=== PATIENT | male | born 1955 | race African-American/Black ===

== ENCOUNTER 2021-08-30 14:21 | Inpatient (IN) | payer OTHER ==
[2021-08-30] MEDS ORDERED: P-EPHED 60MG/TRIPROLIDI 2.5MG TABLET PO PRN (17:20)
[2021-08-30] MEDS ORDERED: LOPERAMIDE HCL 2 MG CAPSULE PO PRN (17:20)
[2021-08-30] MEDS ORDERED: guaiFENesin 200 MG/10 ML 10 ML UNIT-DOSE CUPS PO PRN (17:20)
[2021-08-30] MEDS ORDERED: ACETAMINOPHEN 325 MG TABLET (FP) PO PRN (17:20)
[2021-08-30 21:27] VITALS: BMI 38.9
[2021-08-30] MEDS ORDERED: MELATONIN 5 MG TABLETS PO SCH (22:00)
[2021-08-30] MEDS: THIAMINE HCL 100 MG TABLET (FP) PO SCH (23:06)
[2021-08-30] MEDS: NICOTINE 7 MG/24 HOURS TOPICAL PATCH TD SCH (23:06)
[2021-08-30] MEDS: hydrOXYzine PAMOATE 25 MG CAPSULE (FP) PO SCH ×2 (23:06→23:13)
[2021-08-31] MEDS: hydrOXYzine PAMOATE 25 MG CAPSULE (FP) PO SCH ×2 (06:35→12:14)
[2021-08-31] MEDS ORDERED: PATIENT'S OWN MEDICATION (NON-FORMULARY) (Amlodipine Besylate/Valsartan [Amlodipine-Valsar PO SCH (10:15)
[2021-08-31] MEDS ORDERED: hydrOXYzine PAMOATE 25 MG CAPSULE (FP) PO PRN (10:24)
[2021-08-31 11:54] LABS: HEMATOCRIT 44.5 % (35.4-49); HEMOGLOBIN 14.8 GM/dL (11.7-16.9); MCH 29.8 pg (25.7-33.7); MCHC 33.3 g/dl (32.0-35.9); MEAN CELL VOLUME 89.4 fl (80-96); PLATELET COUNT 274 10^3/uL (134-434); RBC 4.98 M/mm3 (4.00-5.60); RDW 15.2 % (11.9-15.9); WHITE BLOOD COUNT 9.7 K/mm3 (4.0-10.0)
[2021-08-31] MEDS: NICOTINE 7 MG/24 HOURS TOPICAL PATCH TD SCH (11:59)
[2021-08-31] MEDS: amLODIPine BESYLATE 5 MG TABLET (FP) PO SCH (12:00)
[2021-08-31] MEDS: FAMOTIDINE 20 MG TABLET PO SCH (12:00)
[2021-08-31] MEDS: LEVOTHYROXINE NA 100 MCG TABLET (FP) PO SCH (12:00)
[2021-08-31] MEDS: TAMSULOSIN HCL 0.4 MG CAP PO SCH (12:00)
[2021-08-31] MEDS: VALSARTAN 160 MG TABLET PO SCH (12:01)
[2021-08-31] MEDS ORDERED: FLU VACC QS2021-22(6MOS UP)/PF 60 MCG/0.5 ML SYRINGE IM ONE (12:19)
[2021-08-31 12:21] LABS: ALBUMIN 3.8 g/dl (3.4-5.0); BLOOD UREA NITROGEN 21.7 mg/dL (7-18); CALCIUM 9.6 mg/dL (8.5-10.1)
[2021-08-31 12:25] LABS: CREATININE 1.5 mg/dL (0.55-1.3)
[2021-08-31 12:26] LABS: BILIRUBIN,TOTAL 0.9 mg/dL (0.2-1)
[2021-08-31] MEDS ORDERED: PNEUMOC 13-VAL CONJ-DIP CRM/PF 0.5 ML DISP.SYRIN IM ONE (13:00)
[2021-08-31] MEDS: GABAPENTIN 300 MG CAPSULE PO SCH ×2 (13:11→21:03)
[2021-08-31] MEDS ORDERED: PATIENT'S OWN MEDICATION (NON-FORMULARY) (Gabapentin [Neurontin] 600 MG Tablet) PO SCH (14:00)
[2021-08-31 18:23] LABS: EPI CELLS 3 /uL (0-25.1); HYALINE CASTS 25 /uL (0-3.1); URINE APPEARANCE CLOUDY; URINE BACTERIA 4208 /uL (0-1359); URINE BILIRUBIN NEGATIVE (NEGATIVE); URINE COLOR YELLOW; URINE GLUCOSE (UA) NEGATIVE (NEGATIVE); URINE KETONE NEGATIVE (NEGATIVE); URINE LEUK ESTERASE 2+ (NEGATIVE); URINE NITRITE POSITIVE (NEGATIVE); URINE PROTEIN TRACE (NEGATIVE); URINE RBC 20 /uL (0-23.9); URINE WBC 799 /uL (0-25.8)
[2021-08-31 19:59] LABS: URINE CRYSTALS FEW /hpf
[2021-08-31] MEDS: THIAMINE HCL 100 MG TABLET (FP) PO SCH (21:03)
[2021-08-31] MEDS: risperiDONE 1 MG TABLET PO SCH (21:03)
[2021-09-01] MEDS: LEVOTHYROXINE NA 100 MCG TABLET (FP) PO SCH (06:19)
[2021-09-01] MEDS: GABAPENTIN 300 MG CAPSULE PO SCH ×3 (06:19→21:39)
[2021-09-01] MEDS: VALSARTAN 160 MG TABLET PO SCH (09:55)
[2021-09-01] MEDS: amLODIPine BESYLATE 5 MG TABLET (FP) PO SCH (09:56)
[2021-09-01] MEDS: TAMSULOSIN HCL 0.4 MG CAP PO SCH (09:56)
[2021-09-01] MEDS: FAMOTIDINE 20 MG TABLET PO SCH (09:56)
[2021-09-01] MEDS: NICOTINE 7 MG/24 HOURS TOPICAL PATCH TD SCH (09:57)
[2021-09-01] MEDS ORDERED: FLU VACC QS2021-22(6MOS UP)/PF 60 MCG/0.5 ML SYRINGE IM ONE (13:00)
[2021-09-01] MEDS: NICOTINE 10 MG CARTRIDGE (INHALER) IH PRN (21:38)
[2021-09-01] MEDS: risperiDONE 1 MG TABLET PO SCH (21:39)
[2021-09-01] MEDS: THIAMINE HCL 100 MG TABLET (FP) PO SCH (21:39)
[2021-09-01] MEDS: SUVOREXANT 10 MG TABLET PO PRN (21:40)
[2021-09-02] MEDS: GABAPENTIN 300 MG CAPSULE PO SCH ×3 (06:42→21:27)
[2021-09-02] MEDS: LEVOTHYROXINE NA 100 MCG TABLET (FP) PO SCH (06:42)
[2021-09-02] MEDS ORDERED: PT OWN MED DRAWER 7, Y5N ONE (09:02)
[2021-09-02] MEDS: amLODIPine BESYLATE 5 MG TABLET (FP) PO SCH (10:00)
[2021-09-02] MEDS: FAMOTIDINE 20 MG TABLET PO SCH (10:00)
[2021-09-02] MEDS: TAMSULOSIN HCL 0.4 MG CAP PO SCH (10:00)
[2021-09-02] MEDS: VALSARTAN 160 MG TABLET PO SCH (10:01)
[2021-09-02] MEDS: NICOTINE 7 MG/24 HOURS TOPICAL PATCH TD SCH (10:01)
[2021-09-02] MEDS: PRENATAL VITAMINS W/ FOLIC ACID TABLET (FP) PO SCH (10:01)
[2021-09-02] MEDS: NICOTINE 10 MG CARTRIDGE (INHALER) IH PRN (10:02)
[2021-09-02] MEDS: THIAMINE HCL 100 MG TABLET (FP) PO SCH (21:27)
[2021-09-02] MEDS: risperiDONE 1 MG TABLET PO SCH (21:27)
[2021-09-02] MEDS: SUVOREXANT 10 MG TABLET PO PRN (21:28)
[2021-09-02] MEDS: IBUPROFEN 400 MG TABLET (FP) PO PRN (21:30)
[2021-09-03] MEDS: GABAPENTIN 300 MG CAPSULE PO SCH ×3 (06:40→21:24)
[2021-09-03] MEDS: LEVOTHYROXINE NA 100 MCG TABLET (FP) PO SCH (06:40)
[2021-09-03] MEDS: TAMSULOSIN HCL 0.4 MG CAP PO SCH (09:40)
[2021-09-03] MEDS: amLODIPine BESYLATE 5 MG TABLET (FP) PO SCH (09:41)
[2021-09-03] MEDS: FAMOTIDINE 20 MG TABLET PO SCH (09:41)
[2021-09-03] MEDS: NICOTINE 7 MG/24 HOURS TOPICAL PATCH TD SCH (09:41)
[2021-09-03] MEDS: PRENATAL VITAMINS W/ FOLIC ACID TABLET (FP) PO SCH (09:41)
[2021-09-03] MEDS: VALSARTAN 160 MG TABLET PO SCH (09:41)
[2021-09-03] MEDS: IBUPROFEN 400 MG TABLET (FP) PO PRN (20:18)
[2021-09-03] MEDS: THIAMINE HCL 100 MG TABLET (FP) PO SCH (21:24)
[2021-09-03] MEDS: risperiDONE 1 MG TABLET PO SCH (21:24)
[2021-09-03] MEDS: SUVOREXANT 10 MG TABLET PO PRN (21:25)
[2021-09-04] MEDS: LEVOTHYROXINE NA 100 MCG TABLET (FP) PO SCH (06:59)
[2021-09-04] MEDS: GABAPENTIN 300 MG CAPSULE PO SCH ×3 (06:59→21:05)
[2021-09-04] MEDS ORDERED: PT OWN MED DRAWER 7, Y5N ONE (08:49)
[2021-09-04] MEDS: amLODIPine BESYLATE 5 MG TABLET (FP) PO SCH (09:24)
[2021-09-04] MEDS: VALSARTAN 160 MG TABLET PO SCH (09:24)
[2021-09-04] MEDS: FAMOTIDINE 20 MG TABLET PO SCH (09:24)
[2021-09-04] MEDS: PRENATAL VITAMINS W/ FOLIC ACID TABLET (FP) PO SCH (09:24)
[2021-09-04] MEDS: NICOTINE 7 MG/24 HOURS TOPICAL PATCH TD SCH (09:25)
[2021-09-04] MEDS: TAMSULOSIN HCL 0.4 MG CAP PO SCH (09:25)
[2021-09-04] MEDS: MAGNESIUM HYDROX 2400MG/30ML ORAL SUSPENSION 30 ML CUP PO PRN (14:26)
[2021-09-04] MEDS: MAG HYDROX/AL HYDROX/SIMETH 30 ML UNIT-DOSE CUP PO PRN (14:26)
[2021-09-04] MEDS ORDERED: FAMOTIDINE 20 MG TABLET PO ONE (17:50)
[2021-09-04] MEDS: risperiDONE 1 MG TABLET PO SCH (21:05)
[2021-09-04] MEDS: THIAMINE HCL 100 MG TABLET (FP) PO SCH (21:05)
[2021-09-04] MEDS: SUVOREXANT 10 MG TABLET PO PRN (21:07)
[2021-09-05] MEDS: LEVOTHYROXINE NA 100 MCG TABLET (FP) PO SCH (06:16)
[2021-09-05] MEDS: GABAPENTIN 300 MG CAPSULE PO SCH ×3 (06:16→21:16)
[2021-09-05] MEDS: TAMSULOSIN HCL 0.4 MG CAP PO SCH (10:00)
[2021-09-05] MEDS: PRENATAL VITAMINS W/ FOLIC ACID TABLET (FP) PO SCH (10:01)
[2021-09-05] MEDS: NICOTINE 7 MG/24 HOURS TOPICAL PATCH TD SCH (10:01)
[2021-09-05] MEDS: amLODIPine BESYLATE 5 MG TABLET (FP) PO SCH (10:01)
[2021-09-05] MEDS: FAMOTIDINE 20 MG TABLET PO SCH (10:01)
[2021-09-05] MEDS: VALSARTAN 160 MG TABLET PO SCH (10:01)
[2021-09-05] MEDS: OMEPRAZOLE MAGNESIUM PO SCH (16:30)
[2021-09-05 18:13] LABS: EPI CELLS 2 /uL (0-25.1); HYALINE CASTS 0 /uL (0-3.1); URINE APPEARANCE CLEAR; URINE BACTERIA 55 /uL (0-1359); URINE BILIRUBIN NEGATIVE (NEGATIVE); URINE COLOR YELLOW; URINE GLUCOSE (UA) NEGATIVE (NEGATIVE); URINE KETONE NEGATIVE (NEGATIVE); URINE LEUK ESTERASE TRACE (NEGATIVE); URINE NITRITE NEGATIVE (NEGATIVE); URINE PROTEIN NEGATIVE (NEGATIVE); URINE RBC 15 /uL (0-23.9); URINE UROBILINOGEN 0.2 mg/dL (0.2-1.0); URINE WBC 31 /uL (0-25.8)
[2021-09-05] MEDS ORDERED: PT OWN MED DRAWER 7, Y5N ONE (18:50)
[2021-09-05] MEDS: SUVOREXANT 10 MG TABLET PO PRN (21:14)
[2021-09-05] MEDS: NICOTINE 10 MG CARTRIDGE (INHALER) IH PRN (21:15)
[2021-09-05] MEDS: risperiDONE 1 MG TABLET PO SCH (21:16)
[2021-09-05] MEDS: THIAMINE HCL 100 MG TABLET (FP) PO SCH (21:16)
[2021-09-05] MEDS: MAG HYDROX/AL HYDROX/SIMETH 30 ML UNIT-DOSE CUP PO PRN (21:29)
[2021-09-05] MEDS: MAGNESIUM HYDROX 2400MG/30ML ORAL SUSPENSION 30 ML CUP PO PRN (21:31)
[2021-09-05] MEDS ORDERED: FAMOTIDINE 20 MG TABLET PO SCH (22:00)
[2021-09-06] MEDS: GABAPENTIN 300 MG CAPSULE PO SCH ×3 (06:40→21:32)
[2021-09-06] MEDS: LEVOTHYROXINE NA 100 MCG TABLET (FP) PO SCH (06:40)
[2021-09-06] MEDS: OMEPRAZOLE MAGNESIUM PO SCH (09:04)
[2021-09-06] MEDS: amLODIPine BESYLATE 5 MG TABLET (FP) PO SCH (10:14)
[2021-09-06] MEDS: TAMSULOSIN HCL 0.4 MG CAP PO SCH (10:14)
[2021-09-06] MEDS: VALSARTAN 160 MG TABLET PO SCH (10:14)
[2021-09-06] MEDS: NICOTINE 7 MG/24 HOURS TOPICAL PATCH TD SCH (10:15)
[2021-09-06] MEDS: PRENATAL VITAMINS W/ FOLIC ACID TABLET (FP) PO SCH (10:15)
[2021-09-06] MEDS: THIAMINE HCL 100 MG TABLET (FP) PO SCH (21:32)
[2021-09-06] MEDS: NICOTINE 10 MG CARTRIDGE (INHALER) IH PRN (21:32)
[2021-09-06] MEDS: risperiDONE 1 MG TABLET PO SCH (21:32)
[2021-09-06] MEDS: SUVOREXANT 10 MG TABLET PO PRN (21:34)
[2021-09-07] MEDS ORDERED: PT OWN MED DRAWER 7, Y5N ONE ×2 (03:32→08:36)
[2021-09-07] MEDS: GABAPENTIN 300 MG CAPSULE PO SCH ×3 (06:28→21:03)
[2021-09-07] MEDS: OMEPRAZOLE MAGNESIUM 40 MG PO SCH (06:28)
[2021-09-07] MEDS: LEVOTHYROXINE NA 100 MCG TABLET (FP) PO SCH (06:28)
[2021-09-07] MEDS: TAMSULOSIN HCL 0.4 MG CAP PO SCH (10:00)
[2021-09-07] MEDS: VALSARTAN 160 MG TABLET PO SCH (10:00)
[2021-09-07] MEDS: amLODIPine BESYLATE 5 MG TABLET (FP) PO SCH (10:00)
[2021-09-07] MEDS: NICOTINE 7 MG/24 HOURS TOPICAL PATCH TD SCH (10:00)
[2021-09-07] MEDS: PRENATAL VITAMINS W/ FOLIC ACID TABLET (FP) PO SCH (10:01)
[2021-09-07] MEDS: IBUPROFEN 400 MG TABLET (FP) PO PRN (16:27)
[2021-09-07] MEDS: risperiDONE 1 MG TABLET PO SCH (21:03)
[2021-09-07] MEDS: THIAMINE HCL 100 MG TABLET (FP) PO SCH (21:03)
[2021-09-07] MEDS ORDERED: SUVOREXANT 10 MG TABLET PO PRN (22:26)
[2021-09-08] MEDS: GABAPENTIN 300 MG CAPSULE PO SCH ×3 (06:24→21:28)
[2021-09-08] MEDS: LEVOTHYROXINE NA 100 MCG TABLET (FP) PO SCH (06:24)
[2021-09-08] MEDS: OMEPRAZOLE MAGNESIUM 40 MG PO SCH (06:24)
[2021-09-08] MEDS ORDERED: PT OWN MED DRAWER 7, Y5N ONE ×3 (08:57→15:49)
[2021-09-08] MEDS: TAMSULOSIN HCL 0.4 MG CAP PO SCH (09:55)
[2021-09-08] MEDS: amLODIPine BESYLATE 5 MG TABLET (FP) PO SCH (09:55)
[2021-09-08] MEDS: PRENATAL VITAMINS W/ FOLIC ACID TABLET (FP) PO SCH (09:55)
[2021-09-08] MEDS: VALSARTAN 160 MG TABLET PO SCH (09:55)
[2021-09-08] MEDS: NICOTINE 7 MG/24 HOURS TOPICAL PATCH TD SCH (10:15)
[2021-09-08] MEDS: IBUPROFEN 400 MG TABLET (FP) PO PRN (13:47)
[2021-09-08] MEDS: SUVOREXANT 10 MG TABLET PO PRN (21:28)
[2021-09-08] MEDS: THIAMINE HCL 100 MG TABLET (FP) PO SCH (21:28)
[2021-09-08] MEDS: risperiDONE 1 MG TABLET PO SCH (21:28)
[2021-09-08] MEDS: MAGNESIUM HYDROX 2400MG/30ML ORAL SUSPENSION 30 ML CUP PO PRN (21:29)
[2021-09-09] MEDS: LEVOTHYROXINE NA 100 MCG TABLET (FP) PO SCH (06:13)
[2021-09-09] MEDS: OMEPRAZOLE MAGNESIUM 40 MG PO SCH (06:15)
[2021-09-09] MEDS: GABAPENTIN 300 MG CAPSULE PO SCH ×3 (06:15→21:04)
[2021-09-09] MEDS: PRENATAL VITAMINS W/ FOLIC ACID TABLET (FP) PO SCH (09:32)
[2021-09-09] MEDS: TAMSULOSIN HCL 0.4 MG CAP PO SCH (09:32)
[2021-09-09] MEDS: VALSARTAN 160 MG TABLET PO SCH (09:32)
[2021-09-09] MEDS: amLODIPine BESYLATE 5 MG TABLET (FP) PO SCH (09:32)
[2021-09-09] MEDS: NICOTINE 7 MG/24 HOURS TOPICAL PATCH TD SCH (09:33)
[2021-09-09] MEDS: PATIENT'S OWN MEDICATION (NON-FORMULARY) (Meloxicam 15 MG Tablet) PO PRN (10:38)
[2021-09-09] MEDS: THIAMINE HCL 100 MG TABLET (FP) PO SCH (21:04)
[2021-09-09] MEDS: risperiDONE 1 MG TABLET PO SCH (21:04)
[2021-09-09] MEDS: SUVOREXANT 10 MG TABLET PO PRN (21:04)
[2021-09-09] MEDS: NICOTINE 10 MG CARTRIDGE (INHALER) IH PRN (21:17)
[2021-09-10] MEDS ORDERED: PT OWN MED DRAWER 7, Y5N ONE ×2 (03:32→06:51)
[2021-09-10] MEDS: LEVOTHYROXINE NA 100 MCG TABLET (FP) PO SCH (06:47)
[2021-09-10] MEDS: OMEPRAZOLE MAGNESIUM 40 MG PO SCH (06:47)
[2021-09-10] MEDS: GABAPENTIN 300 MG CAPSULE PO SCH ×3 (06:47→21:10)
[2021-09-10] MEDS: PATIENT'S OWN MEDICATION (NON-FORMULARY) (Meloxicam 15 MG Tablet) PO PRN (06:51)
[2021-09-10] MEDS: NICOTINE 10 MG CARTRIDGE (INHALER) IH PRN (06:51)
[2021-09-10] MEDS: VALSARTAN 160 MG TABLET PO SCH (09:56)
[2021-09-10] MEDS: TAMSULOSIN HCL 0.4 MG CAP PO SCH (09:57)
[2021-09-10] MEDS: NICOTINE 7 MG/24 HOURS TOPICAL PATCH TD SCH (09:57)
[2021-09-10] MEDS: PRENATAL VITAMINS W/ FOLIC ACID TABLET (FP) PO SCH (09:57)
[2021-09-10] MEDS: amLODIPine BESYLATE 5 MG TABLET (FP) PO SCH (09:57)
[2021-09-10] MEDS: MAGNESIUM HYDROX 2400MG/30ML ORAL SUSPENSION 30 ML CUP PO PRN (18:35)
[2021-09-10] MEDS: SUVOREXANT 10 MG TABLET PO PRN (21:09)
[2021-09-10] MEDS: THIAMINE HCL 100 MG TABLET (FP) PO SCH (21:10)
[2021-09-10] MEDS: risperiDONE 1 MG TABLET PO SCH (21:10)
[2021-09-11] MEDS ORDERED: PT OWN MED DRAWER 7, Y5N ONE ×3 (03:34→08:48)
[2021-09-11] MEDS: GABAPENTIN 300 MG CAPSULE PO SCH ×3 (06:34→21:16)
[2021-09-11] MEDS: PATIENT'S OWN MEDICATION (NON-FORMULARY) (Meloxicam 15 MG Tablet) PO PRN (06:34)
[2021-09-11] MEDS: OMEPRAZOLE MAGNESIUM 40 MG PO SCH (06:34)
[2021-09-11] MEDS: LEVOTHYROXINE NA 100 MCG TABLET (FP) PO SCH (06:34)
[2021-09-11] MEDS: PRENATAL VITAMINS W/ FOLIC ACID TABLET (FP) PO SCH (09:53)
[2021-09-11] MEDS: VALSARTAN 160 MG TABLET PO SCH (09:53)
[2021-09-11] MEDS: TAMSULOSIN HCL 0.4 MG CAP PO SCH (09:53)
[2021-09-11] MEDS: amLODIPine BESYLATE 5 MG TABLET (FP) PO SCH (09:53)
[2021-09-11] MEDS: NICOTINE 7 MG/24 HOURS TOPICAL PATCH TD SCH (09:54)
[2021-09-11] MEDS: MAGNESIUM CITRATE 300 ML BOTTLE PO PRN (09:54)
[2021-09-11] MEDS: NICOTINE 10 MG CARTRIDGE (INHALER) IH PRN (19:57)
[2021-09-11] MEDS: THIAMINE HCL 100 MG TABLET (FP) PO SCH (21:16)
[2021-09-11] MEDS: SUVOREXANT 10 MG TABLET PO PRN (21:16)
[2021-09-11] MEDS: risperiDONE 1 MG TABLET PO SCH (21:16)
[2021-09-12] MEDS ORDERED: PT OWN MED DRAWER 7, Y5N ONE ×2 (03:39→08:23)
[2021-09-12] MEDS: GABAPENTIN 300 MG CAPSULE PO SCH ×3 (06:51→21:05)
[2021-09-12] MEDS: OMEPRAZOLE MAGNESIUM 40 MG PO SCH (06:51)
[2021-09-12] MEDS: LEVOTHYROXINE NA 100 MCG TABLET (FP) PO SCH (06:51)
[2021-09-12] MEDS: PATIENT'S OWN MEDICATION (NON-FORMULARY) (Meloxicam 15 MG Tablet) PO PRN (06:51)
[2021-09-12] MEDS: PRENATAL VITAMINS W/ FOLIC ACID TABLET (FP) PO SCH (10:07)
[2021-09-12] MEDS: TAMSULOSIN HCL 0.4 MG CAP PO SCH (10:07)
[2021-09-12] MEDS: VALSARTAN 160 MG TABLET PO SCH (10:07)
[2021-09-12] MEDS: amLODIPine BESYLATE 5 MG TABLET (FP) PO SCH (10:07)
[2021-09-12] MEDS: NICOTINE 7 MG/24 HOURS TOPICAL PATCH TD SCH (10:08)
[2021-09-12] MEDS: NICOTINE 10 MG CARTRIDGE (INHALER) IH PRN (10:08)
[2021-09-12] MEDS: THIAMINE HCL 100 MG TABLET (FP) PO SCH (21:05)
[2021-09-12] MEDS: risperiDONE 1 MG TABLET PO SCH (21:05)
[2021-09-12] MEDS: SUVOREXANT 10 MG TABLET PO PRN (21:07)
[2021-09-13] MEDS: GABAPENTIN 300 MG CAPSULE PO SCH ×3 (06:17→21:36)
[2021-09-13] MEDS: LEVOTHYROXINE NA 100 MCG TABLET (FP) PO SCH (06:17)
[2021-09-13] MEDS: OMEPRAZOLE MAGNESIUM 40 MG PO SCH (06:17)
[2021-09-13] MEDS ORDERED: PT OWN MED DRAWER 7, Y5N ONE ×2 (08:43→09:55)
[2021-09-13] MEDS: amLODIPine BESYLATE 5 MG TABLET (FP) PO SCH (09:52)
[2021-09-13] MEDS: TAMSULOSIN HCL 0.4 MG CAP PO SCH (09:52)
[2021-09-13] MEDS: VALSARTAN 160 MG TABLET PO SCH (09:52)
[2021-09-13] MEDS: NICOTINE 10 MG CARTRIDGE (INHALER) IH PRN (09:53)
[2021-09-13] MEDS: NICOTINE 7 MG/24 HOURS TOPICAL PATCH TD SCH (09:53)
[2021-09-13] MEDS: PRENATAL VITAMINS W/ FOLIC ACID TABLET (FP) PO SCH (09:53)
[2021-09-13] MEDS: PATIENT'S OWN MEDICATION (NON-FORMULARY) (Meloxicam 15 MG Tablet) PO PRN (09:55)
[2021-09-13] MEDS ORDERED: risperiDONE 2 MG TABLET PO SCH (10:26)
[2021-09-13] MEDS: SUVOREXANT 15 MG TABLET PO PRN (21:36)
[2021-09-13] MEDS: THIAMINE HCL 100 MG TABLET (FP) PO SCH (21:37)
[2021-09-14] MEDS: OMEPRAZOLE MAGNESIUM 40 MG PO SCH (06:15)
[2021-09-14] MEDS: GABAPENTIN 300 MG CAPSULE PO SCH ×3 (06:15→21:14)
[2021-09-14] MEDS: LEVOTHYROXINE NA 100 MCG TABLET (FP) PO SCH (06:15)
[2021-09-14] MEDS: PATIENT'S OWN MEDICATION (NON-FORMULARY) (Meloxicam 15 MG Tablet) PO PRN (06:18)
[2021-09-14] MEDS: TAMSULOSIN HCL 0.4 MG CAP PO SCH (09:44)
[2021-09-14] MEDS: PRENATAL VITAMINS W/ FOLIC ACID TABLET (FP) PO SCH (09:45)
[2021-09-14] MEDS: NICOTINE 7 MG/24 HOURS TOPICAL PATCH TD SCH (09:45)
[2021-09-14] MEDS: amLODIPine BESYLATE 5 MG TABLET (FP) PO SCH (09:45)
[2021-09-14] MEDS: risperiDONE 1 MG TABLET PO SCH ×2 (09:45→21:14)
[2021-09-14] MEDS: VALSARTAN 160 MG TABLET PO SCH (09:45)
[2021-09-14] MEDS: SUVOREXANT 15 MG TABLET PO PRN (21:13)
[2021-09-14] MEDS: THIAMINE HCL 100 MG TABLET (FP) PO SCH (21:14)
[2021-09-15] MEDS ORDERED: PT OWN MED DRAWER 7, Y5N ONE (03:44)
[2021-09-15] MEDS: GABAPENTIN 300 MG CAPSULE PO SCH ×3 (06:23→21:28)
[2021-09-15] MEDS: PATIENT'S OWN MEDICATION (NON-FORMULARY) (Meloxicam 15 MG Tablet) PO PRN ×2 (06:23→10:01)
[2021-09-15] MEDS: LEVOTHYROXINE NA 100 MCG TABLET (FP) PO SCH (06:23)
[2021-09-15] MEDS: OMEPRAZOLE MAGNESIUM 40 MG PO SCH (06:24)
[2021-09-15] MEDS: amLODIPine BESYLATE 5 MG TABLET (FP) PO SCH (10:00)
[2021-09-15] MEDS: VALSARTAN 160 MG TABLET PO SCH (10:01)
[2021-09-15] MEDS: risperiDONE 1 MG TABLET PO SCH ×2 (10:01→21:28)
[2021-09-15] MEDS: TAMSULOSIN HCL 0.4 MG CAP PO SCH (10:01)
[2021-09-15] MEDS: PRENATAL VITAMINS W/ FOLIC ACID TABLET (FP) PO SCH (10:01)
[2021-09-15] MEDS: NICOTINE 7 MG/24 HOURS TOPICAL PATCH TD SCH (10:02)
[2021-09-15] MEDS: NICOTINE 10 MG CARTRIDGE (INHALER) IH PRN (10:03)
[2021-09-15] MEDS: SUVOREXANT 15 MG TABLET PO PRN (21:27)
[2021-09-15] MEDS: THIAMINE HCL 100 MG TABLET (FP) PO SCH (21:28)
[2021-09-16] MEDS ORDERED: PT OWN MED DRAWER 7, Y5N ONE ×2 (03:32→09:50)
[2021-09-16] MEDS: GABAPENTIN 300 MG CAPSULE PO SCH ×3 (06:42→21:24)
[2021-09-16] MEDS: PATIENT'S OWN MEDICATION (NON-FORMULARY) (Meloxicam 15 MG Tablet) PO PRN (06:42)
[2021-09-16] MEDS: LEVOTHYROXINE NA 100 MCG TABLET (FP) PO SCH (06:43)
[2021-09-16] MEDS: OMEPRAZOLE MAGNESIUM 40 MG PO SCH (06:43)
[2021-09-16] MEDS: risperiDONE 1 MG TABLET PO SCH ×2 (09:49→21:24)
[2021-09-16] MEDS: TAMSULOSIN HCL 0.4 MG CAP PO SCH (09:49)
[2021-09-16] MEDS: PRENATAL VITAMINS W/ FOLIC ACID TABLET (FP) PO SCH (09:49)
[2021-09-16] MEDS: amLODIPine BESYLATE 5 MG TABLET (FP) PO SCH (09:49)
[2021-09-16] MEDS: VALSARTAN 160 MG TABLET PO SCH (09:50)
[2021-09-16] MEDS: NICOTINE 7 MG/24 HOURS TOPICAL PATCH TD SCH (09:51)
[2021-09-16] MEDS: MAGNESIUM HYDROX 2400MG/30ML ORAL SUSPENSION 30 ML CUP PO PRN (15:07)
[2021-09-16] MEDS: SUVOREXANT 15 MG TABLET PO PRN (21:24)
[2021-09-16] MEDS: THIAMINE HCL 100 MG TABLET (FP) PO SCH (21:24)
[2021-09-17] MEDS ORDERED: PT OWN MED DRAWER 7, Y5N ONE ×2 (03:32→06:17)
[2021-09-17] MEDS: LEVOTHYROXINE NA 100 MCG TABLET (FP) PO SCH (06:16)
[2021-09-17] MEDS: OMEPRAZOLE MAGNESIUM 40 MG PO SCH (06:16)
[2021-09-17] MEDS: GABAPENTIN 300 MG CAPSULE PO SCH ×3 (06:16→21:14)
[2021-09-17 06:37] VITALS: TEMP 97.3
[2021-09-17] MEDS: VALSARTAN 160 MG TABLET PO SCH (09:40)
[2021-09-17] MEDS: TAMSULOSIN HCL 0.4 MG CAP PO SCH (09:40)
[2021-09-17] MEDS: risperiDONE 1 MG TABLET PO SCH ×2 (09:41→21:14)
[2021-09-17] MEDS: NICOTINE 7 MG/24 HOURS TOPICAL PATCH TD SCH (09:41)
[2021-09-17] MEDS: PRENATAL VITAMINS W/ FOLIC ACID TABLET (FP) PO SCH (09:41)
[2021-09-17] MEDS: amLODIPine BESYLATE 5 MG TABLET (FP) PO SCH (09:41)
[2021-09-17] MEDS: NICOTINE 10 MG CARTRIDGE (INHALER) IH PRN ×2 (09:42→21:40)
[2021-09-17] MEDS: PATIENT'S OWN MEDICATION (NON-FORMULARY) (Meloxicam 15 MG Tablet) PO PRN (09:42)
[2021-09-17] MEDS: SUVOREXANT 15 MG TABLET PO PRN (21:14)
[2021-09-17] MEDS: THIAMINE HCL 100 MG TABLET (FP) PO SCH (21:14)
[2021-09-18] MEDS: LEVOTHYROXINE NA 100 MCG TABLET (FP) PO SCH (06:37)
[2021-09-18] MEDS: OMEPRAZOLE MAGNESIUM 40 MG PO SCH (06:37)
[2021-09-18] MEDS: PATIENT'S OWN MEDICATION (NON-FORMULARY) (Meloxicam 15 MG Tablet) PO PRN (06:37)
[2021-09-18] MEDS: GABAPENTIN 300 MG CAPSULE PO SCH ×3 (06:37→21:11)
[2021-09-18] MEDS: MAGNESIUM CITRATE 300 ML BOTTLE PO PRN (07:21)
[2021-09-18] MEDS ORDERED: PT OWN MED DRAWER 7, Y5N ONE (08:57)
[2021-09-18] MEDS: TAMSULOSIN HCL 0.4 MG CAP PO SCH (09:33)
[2021-09-18] MEDS: risperiDONE 1 MG TABLET PO SCH ×2 (09:33→21:12)
[2021-09-18] MEDS: amLODIPine BESYLATE 5 MG TABLET (FP) PO SCH (09:34)
[2021-09-18] MEDS: NICOTINE 7 MG/24 HOURS TOPICAL PATCH TD SCH (09:34)
[2021-09-18] MEDS: PRENATAL VITAMINS W/ FOLIC ACID TABLET (FP) PO SCH (09:34)
[2021-09-18] MEDS: VALSARTAN 160 MG TABLET PO SCH (09:34)
[2021-09-18] MEDS: THIAMINE HCL 100 MG TABLET (FP) PO SCH (21:12)
[2021-09-19] MEDS: PATIENT'S OWN MEDICATION (NON-FORMULARY) (Meloxicam 15 MG Tablet) PO PRN (06:33)
[2021-09-19] MEDS: OMEPRAZOLE MAGNESIUM 40 MG PO SCH (06:33)
[2021-09-19] MEDS: LEVOTHYROXINE NA 100 MCG TABLET (FP) PO SCH (06:33)
[2021-09-19] MEDS: GABAPENTIN 300 MG CAPSULE PO SCH ×3 (06:33→21:35)
[2021-09-19] MEDS: VALSARTAN 160 MG TABLET PO SCH (09:38)
[2021-09-19] MEDS: TAMSULOSIN HCL 0.4 MG CAP PO SCH (09:38)
[2021-09-19] MEDS: risperiDONE 1 MG TABLET PO SCH ×2 (09:39→21:35)
[2021-09-19] MEDS: PRENATAL VITAMINS W/ FOLIC ACID TABLET (FP) PO SCH (09:39)
[2021-09-19] MEDS: NICOTINE 7 MG/24 HOURS TOPICAL PATCH TD SCH (09:39)
[2021-09-19] MEDS: amLODIPine BESYLATE 5 MG TABLET (FP) PO SCH (09:39)
[2021-09-19] MEDS ORDERED: PT OWN MED DRAWER 7, Y5N ONE (13:03)
[2021-09-19] MEDS: SUVOREXANT 15 MG TABLET PO PRN (21:32)
[2021-09-19] MEDS: THIAMINE HCL 100 MG TABLET (FP) PO SCH (21:35)
[2021-09-19] MEDS: NICOTINE 10 MG CARTRIDGE (INHALER) IH PRN (22:02)
[2021-09-20] MEDS ORDERED: PT OWN MED DRAWER 7, Y5N ONE (03:46)
[2021-09-20] MEDS: LEVOTHYROXINE NA 100 MCG TABLET (FP) PO SCH (06:34)
[2021-09-20] MEDS: GABAPENTIN 300 MG CAPSULE PO SCH (06:34)
[2021-09-20] MEDS: OMEPRAZOLE MAGNESIUM 40 MG PO SCH (06:35)
[2021-09-20] MEDS: PATIENT'S OWN MEDICATION (NON-FORMULARY) (Meloxicam 15 MG Tablet) PO PRN (06:35)
[2021-09-20] MEDS: TAMSULOSIN HCL 0.4 MG CAP PO SCH (09:14)
[2021-09-20] MEDS: amLODIPine BESYLATE 5 MG TABLET (FP) PO SCH (09:14)
[2021-09-20] MEDS: risperiDONE 1 MG TABLET PO SCH (09:14)
[2021-09-20] MEDS: NICOTINE 10 MG CARTRIDGE (INHALER) IH PRN (09:15)
[2021-09-20] MEDS: PRENATAL VITAMINS W/ FOLIC ACID TABLET (FP) PO SCH (09:15)
[2021-09-20] MEDS: NICOTINE 7 MG/24 HOURS TOPICAL PATCH TD SCH (09:15)
[2021-09-20] MEDS: VALSARTAN 160 MG TABLET PO SCH (09:15)
[2021-09-20 10:05] VITALS: BP 131/78; PULSE 91
== END 2021-09-20 09:19 | disposition home or self-care (01) | DRG 895 ==
LOC: YASAS 14:21 → Y3E 20:46
PROVIDERS: ADMIT Allergy & Immunology; ATTEND Allergy & Immunology
PROC: HZ42ZZZ Group Counseling for Substance Abuse Treatment, Cognitive-Behavioral (ICD-10-PCS; principal; 2021-08-30)
DX: F10.20 Alcohol dependence, uncomplicated (principal); F14.20 Cocaine dependence, uncomplicated; F19.282 Other psychoactive substance dependence with psychoactive substance-induced sleep disorder; N39.0 Urinary tract infection, site not specified; F20.9 Schizophrenia, unspecified; F17.210 Nicotine dependence, cigarettes, uncomplicated; F19.24 Other psychoactive substance dependence with psychoactive substance-induced mood disorder; F32.9 Major depressive disorder, single episode, unspecified; E03.9 Hypothyroidism, unspecified; I10 Essential (primary) hypertension; K21.9 Gastro-esophageal reflux disease without esophagitis; N40.0 Benign prostatic hyperplasia without lower urinary tract symptoms; Z96.641 Presence of right artificial hip joint; E66.9 Obesity, unspecified; Z68.39 Body mass index [BMI] 39.0-39.9, adult; Z98.84 Bariatric surgery status
CPT/HCPCS: 36415; 80053; 81003; 85027; 86780; 87086; 90670; 90686; C9803; G0008; G0009; J2794; U0003; U0005